=== PATIENT | male | born 1995 | race Caucasian/White ===

== ENCOUNTER 2020-11-08 20:28 | Emergency (ER) | payer MEDICAID ==
[~2020-11-08] VITALS: Ht 188 cm; Wt 76.2 kg
--- NOTE | 2020-11-08 20:55 | NUR ---
at bedside for mse
--- NOTE | 2020-11-08 21:05 | NUR ---
EDMD Dr. Ortez assessed pt, observed several puncture wounds on rt hand and lt forearm, cultured several puss filled irritated puncture wounds. Order given for augmentin loading dose and to cleanse and dress wounds.
[2020-11-08] MEDS ORDERED: AMOXICILLIN-CLAVUL 875-125MG TABLET PO ONE (21:15)
[2020-11-08] MEDS ORDERED: AMOX-430 PO (21:17)
[2020-11-08] MEDS ORDERED: AMOXICILLIN-CLAVUL 875-125MG TABLET ONE (21:20)
--- NOTE | 2020-11-08 21:20 | NUR ---
6 superficial irritated punture wounds on lt forearm and elbow pressure irrigated with copious amts of NS/betadine soln, as well as 3 wounds circa rt wrist. bacitracin applied with fresh gauze and wrapped with 6in and 1in cling and 4in tube gauze. PMS intact bilat with cap refil<3sec.
[2020-11-08 21:31] LABS: CREATININE 1.1 mg/dL (0.6-1.3); POTASSIUM 4.2 mmol/L (3.5-5.1)
[2020-11-08 21:32] LABS: HEMATOCRIT 38.8 % (36.7-47.1); MEAN CORPUSCULAR HEMOGLOBIN 31.4 uug (23.8-33.4); PLATELET COUNT (AUTO) 211 K/uL (152-348)
[2020-11-08] MEDS ORDERED: BACITRACIN ZINC OINT 15 GM TUBE ONE (21:53)
--- NOTE | 2020-11-08 22:00 | NUR ---
Pt DCed home with aftercare instructions. Pt told to elevate as much as possible, to decrease pain and swelling. Also to keep wounds and dressing clean and dry, wash with soap and water if soiled. Ideally should keep dressing on for at least 40 hours to given time for wounds to seal up. Pt has good color and appearance. VSS, PE WNL, otherwise completely healthy individual. Pt happy and thankful of service. Denies any pain or discomfort and no s/sx of distress noted.
[2020-11-08 22:19] VITALS: BP 128/77
== END 2020-11-08 22:00 | disposition home or self-care (01) ==
LOC: ER 20:35
DX: S51.851A Open bite of right forearm, initial encounter (principal); S61.451A Open bite of right hand, initial encounter; L08.9 Local infection of the skin and subcutaneous tissue, unspecified; W54.0XXA Bitten by dog, initial encounter; Y92.89 Other specified places as the place of occurrence of the external cause
CPT/HCPCS: 36415; 85025; 87070; A4663